=== PATIENT | female | born 1980 | race Hispanic/Latino ===

== ENCOUNTER 2019-08-08 19:25 | Inpatient (IN) | payer OTHER ==
[2019-08-08] MEDS ORDERED: Lidocaine 1% (PF) 30 ML VIAL SC PRN (19:59)
[2019-08-08] MEDS ORDERED: Butorphanol Tartrate 1 MG/ML VIAL SLOW IVP PRN (19:59)
[2019-08-08] MEDS ORDERED: Ondansetron PF 4 MG/2 ML Vial IVP PRN (19:59)
[2019-08-08] MEDS ORDERED: NS w/ Oxytocin 10 units 500 ML IV SCH ×2 (19:59)
[2019-08-08] MEDS ORDERED: Misoprostol 200 MCG TAB PR PRN (19:59)
[2019-08-08] MEDS ORDERED: Diphenoxylate HCl/Atropine Tablet PO PRN (19:59)
[2019-08-08] MEDS ORDERED: NS / Oxytocin 40 units/1000ml 1,000 ML IV PRN (19:59)
[2019-08-08] MEDS ORDERED: Methylergonovine 0.2 MG/ML VIAL IM PRN (19:59)
[2019-08-08] MEDS ORDERED: hydrALAZINE 20 MG/ML VIAL SLOW IVP PRN (19:59)
[2019-08-08] MEDS ORDERED: Carboprost 250 MCG/ML AMP IM PRN (19:59)
[2019-08-08] MEDS ORDERED: Ibuprofen 800 MG TAB PO PRN (19:59)
[2019-08-08] MEDS ORDERED: Promethazine HCl 25 MG/ML VIAL IM PRN (19:59)
[2019-08-08] MEDS ORDERED: HYDROcodone/Acetaminophen 5/325 mg Tablet PO PRN (19:59)
[2019-08-08 20:03] VITALS: BMI 26.4
[2019-08-08] MEDS: Lactated Ringer's 1,000 ML IV SCH (20:45)
[2019-08-08 20:52] LABS: Hemoglobin 13.5 g/dL (12.0-16.0); Mean Corpuscular HGB CONC 35.4 g/dL (32.0-36.0); Mean Corpuscular Hemoglobin 31.8 pg (27.0-31.0); Mean Corpuscular Volume 89.6 fL (78.0-98.0); Mean Platelet Volume 10.6 fL (7.4-10.4); Platelet Count 155 thou/uL (130-400); RBC Distribution Width 12.6 % (11.5-14.5); Red Blood Cell (RBC) Count 4.24 mill/uL (4.20-5.40); White Blood Cell (WBC) Count 10.8 thou/uL (4.8-10.8)
[2019-08-08] MEDS: Misoprostol 100 MCG TAB PO SCH (21:15)
[2019-08-08 21:16] LABS: Glucose 80 mg/dL (70-105)
[2019-08-08 21:29] LABS: Syphilis Antibody Nonreactive (Nonreactive); Syphilis Antibody Index 0.04 S/CO (<1.00 Non-Reactive)
[2019-08-08 23:24] LABS: Hep B Surf Ag Non-Reactive S/CO (NonReactive)
[2019-08-09] MEDS: Misoprostol 100 MCG TAB PO SCH (01:37)
[2019-08-09] MEDS ORDERED: Fentanyl 4 mcg/Bup 0.1% Cadd 100 ML ONE (06:25)
[2019-08-09] MEDS: Lactated Ringer's 1,000 ML IV SCH ×3 (06:49→15:04)
[2019-08-09] MEDS ORDERED: Promethazine HCl 25 MG/ML VIAL IM PRN ×2 (12:30→19:28)
[2019-08-09] MEDS ORDERED: Ondansetron PF 4 MG/2 ML Vial IVP PRN ×2 (12:30→19:28)
[2019-08-09] MEDS ORDERED: diphenhydrAMINE 50 MG/ML VIAL IVP PRN (12:30)
[2019-08-09] MEDS ORDERED: Fentanyl 4 mcg/Bupivacaine 0.1% Cassette 100 ML EPIDURAL SCH (12:30)
[2019-08-09] MEDS ORDERED: Communication Order-Pharmacy FS SCH (12:30)
[2019-08-09] MEDS ORDERED: ePHEDrine/0.9% NaCl/PF SYRINGE 50 mg/10 ml SLOW IVP PRN (12:30)
[2019-08-09] MEDS ORDERED: Lactated Ringer's 500 ML IV PRN (12:30)
[2019-08-09] MEDS ORDERED: Acetaminophen 325 MG TAB PO PRN (12:30)
[2019-08-09] MEDS ORDERED: Naloxone HCl 0.4 mg/ml Vial IVP PRN ×2 (12:30)
[2019-08-09] MEDS ORDERED: NS / Oxytocin 40 units/1000ml 1,000 ML ONE (13:48)
[2019-08-09] MEDS ORDERED: Lidocaine 1% (PF) 30 ML VIAL ONE (13:48)
[2019-08-09] MEDS ORDERED: NS / Oxytocin 40 units/1000ml 1,000 ML IV SCH (19:28)
[2019-08-09] MEDS ORDERED: Bisacodyl 10 MG SUPP PR PRN (19:28)
[2019-08-09] MEDS ORDERED: diphenhydrAMINE 25 MG CAP PO PRN (19:28)
[2019-08-09] MEDS ORDERED: Lanolin Ointment 7 GM TUBE TOP PRN (19:28)
[2019-08-09] MEDS ORDERED: hydrALAZINE 20 MG/ML VIAL SLOW IVP PRN (19:28)
[2019-08-09] MEDS ORDERED: Adacel (T-DAP) 0.5 ML SYRINGE IM ONE (19:28)
[2019-08-09] MEDS ORDERED: HYDROcodone/Acetaminophen 5/325 mg Tablet PO PRN ×2 (19:28)
[2019-08-09] MEDS ORDERED: Milk Of Magnesia 30 ML UDCUP PO PRN (19:28)
[2019-08-09] MEDS ORDERED: Benzocaine-Menthol 82.5 ML CAN TOP PRN (19:28)
[2019-08-09] MEDS: Ibuprofen 800 MG TAB PO SCH (23:03)
[2019-08-09] MEDS: Docusate Calcium (SURFAK) 240 MG CAP PO SCH (23:03)
[2019-08-10] MEDS: Ibuprofen 800 MG TAB PO SCH ×3 (06:24→22:06)
[2019-08-10 06:46] LABS: #Eosinphils 0.1 thou/uL (0.0-0.7); #Lymphocytes 2.1 thou/uL (1.20-3.40); #Monocytes 0.7 thou/uL (0.11-0.59); %Basophils 0.2 % (0.0-1.0); %Eosinophils 0.6 % (0.0-10.0); %Lymphocytes 14.9 % (21.0-51.0); %Monocytes 5.1 % (0.0-10.0); %Neutrophils 79.2 % (42.0-75.0); Hemoglobin 11.2 g/dL (12.0-16.0); Mean Corpuscular HGB CONC 35.2 g/dL (32.0-36.0); Mean Corpuscular Hemoglobin 31.5 pg (27.0-31.0); Mean Corpuscular Volume 89.4 fL (78.0-98.0); Mean Platelet Volume 10.4 fL (7.4-10.4); Platelet Count 122 thou/uL (130-400); RBC Distribution Width 12.8 % (11.5-14.5); Red Blood Cell (RBC) Count 3.55 mill/uL (4.20-5.40); White Blood Cell (WBC) Count 13.9 thou/uL (4.8-10.8)
[2019-08-10] MEDS: Ferrous Sulfate 325 MG TAB PO SCH ×2 (09:58→16:42)
[2019-08-10] MEDS ORDERED: FLU VACC QS2019-20(6MOS UP)/PF 60 MCG/0.5 ML SYRINGE IM ONE (10:15)
[2019-08-10] MEDS: Prenatal Vitamin 1 TAB PO SCH (10:51)
[2019-08-10] MEDS: Docusate Calcium (SURFAK) 240 MG CAP PO SCH ×2 (10:52→22:06)
[2019-08-10] MEDS: Misoprostol 100 MCG TAB PO SCH ×2 (11:11→11:12)
[2019-08-11] MEDS: Ibuprofen 800 MG TAB PO SCH (04:55)
[2019-08-11 07:51] VITALS: BP 139/77; TEMP 97.4
[2019-08-11] MEDS: Docusate Calcium (SURFAK) 240 MG CAP PO SCH (08:27)
[2019-08-11] MEDS: Ferrous Sulfate 325 MG TAB PO SCH (08:28)
[2019-08-11] MEDS: Prenatal Vitamin 1 TAB PO SCH (08:28)
== END 2019-08-11 09:38 | disposition home or self-care (01) | DRG 807 ==
LOC: L&D 19:25 → 3SW 08-09 21:47
PROVIDERS: ADMIT Family Medicine; ATTEND Family Medicine
PROC: 10E0XZZ Delivery of Products of Conception, External Approach (ICD-10-PCS; principal; 2019-08-09)
PROC: 3E033VJ Introduction of Other Hormone into Peripheral Vein, Percutaneous Approach (ICD-10-PCS; 2019-08-09)
PROC: 10907ZC Drainage of Amniotic Fluid, Therapeutic from Products of Conception, Via Natural or Artificial Opening (ICD-10-PCS; 2019-08-09)
PROC: 0W8NXZZ Division of Female Perineum, External Approach (ICD-10-PCS; 2019-08-09)
DX: O24.429 Gestational diabetes mellitus in childbirth, unspecified control (principal); Z37.0 Single live birth; Z3A.39 39 weeks gestation of pregnancy
CPT/HCPCS: 36415; 36416; 51702; 82947; 85025; 85027; 86780; 86850; 86900; 86901; 87340; 90715; J2001; J2590

== ENCOUNTER 2020-09-03 20:16 | Emergency (ER) | payer OTHER ==
[2020-09-03] MEDS ORDERED: HYDROcodone/Acetaminophen 10/325 mg Tablet ONE (20:44)
[2020-09-03 20:51] LABS: #Eosinphils 0.1 thou/uL (0.0-0.7); #Lymphocytes 2.9 thou/uL (1.20-3.40); #Monocytes 0.6 thou/uL (0.11-0.59); #Neutrophils 6.6 thou/uL (1.40-6.50); %Basophils 0.2 % (0.0-1.0); %Eosinophils 0.8 % (0.0-10.0); %Lymphocytes 28.5 % (21.0-51.0); %Neutrophils 64.5 % (42.0-75.0); Mean Corpuscular HGB CONC 34.9 g/dL (32.0-36.0); Mean Corpuscular Hemoglobin 30.5 pg (27.0-31.0); Mean Corpuscular Volume 87.3 fL (78.0-98.0); Mean Platelet Volume 8.9 fL (7.4-10.4); Platelet Count 229 thou/uL (130-400); Red Blood Cell (RBC) Count 4.59 mill/uL (4.20-5.40); White Blood Cell (WBC) Count 10.3 thou/uL (4.8-10.8)
[2020-09-03 21:52] LABS: ALT (SGPT) 16 U/L (8-55); AST (SGOT) 16 U/L (5-34); Albumin 4.5 g/dL (3.5-5.0); Alkaline Phosphatase 56 U/L (40-110); Anion Gap 14 mmol/L (10-20); BUN (Urea Nitrogen) 12 mg/dL (7.0-18.7); Bilirubin, Total 0.2 mg/dL (0.2-1.2); Calc. Creatinine Clearance 0 mL/min (70-130); Calcium 9.2 mg/dL (7.8-10.44); Carbon Dioxide 22 mmol/L (22-29); Chloride 103 mmol/L (98-107); Estimated GFR-MDRD 81; Globulin 3.1 g/dL (2.4-3.5); Glucose 100 mg/dL (70-105); Potassium 3.8 mmol/L (3.5-5.1); Protein, Total 7.6 g/dL (6.0-8.3); Sodium 135 mmol/L (136-145)
--- NOTE | 2020-09-03 21:54 | ULT ---
PELVIC ULTRASOUND: History: First trimester bleeding. FINDINGS: Real-time imaging of the pelvis was obtained transabdominally. This shows an intrauterine gestational sac and pole. The crown to rump length measurements are 2.6 cm corresponding to 9 weeks 2 days . Yolk sac and heart activity was seen. heart rate was 168 beats/minute. There is suggest ion of a tiny subchorionic bleed. The right and left adnexa are normal in appearance. DOPPLER EVALUATION WITH SPECTRAL ANALYSIS: Normal flow is shown to the ovaries. IMPRESSION: Intrauterine with crown to rump length measurements corresponding to 9 weeks 2 days, with e stimated date of delivery 04-06-2021. Very small subchorionic bleed identified. POS: OFF
[2020-09-03 22:22] LABS: Bilirubin Negative (Negative); Blood, Urine 3+ (Negative); Clarity Clear (Clear); Glucose, Urine (Dipstick) Normal (Negative); Ketone, Urine Negative (Negative); Leukocyte Negative Leu/uL (Negative); Nitrite Negative (Negative); Protein, Urine (Dipstick) Negative (Neg-Trace); Specific Gravity, Urine 1.005 (1.002-1.036); Urobilinogen Normal mg/dL (Less than 2); pH, Urine 6.5 (5.0-9.0)
[2020-09-03 22:23] LABS: Bacteria/HPF None Seen HPF (None Seen); RBC/HPF 0-3 HPF (0-3); Squamous Epithelial None Seen HPF (0-3); WBC/HPF 0-3 HPF (0-3)
== END 2020-09-03 22:38 | disposition home or self-care (01) ==
LOC: ERS 20:16
DX: O20.8 Other hemorrhage in early pregnancy (principal); Z3A.09 9 weeks gestation of pregnancy
CPT/HCPCS: 36415; 76856; 80053; 81003; 81015; 84702; 85025; 86850; 86900; 86901

== ENCOUNTER 2020-11-24 12:25 | Outpatient (CLI) | payer OTHER ==
--- NOTE | 2020-11-24 13:56 | ULT ---
Obstetrical ultrasound: 11/24/2020 HISTORY: 40-year-old female undergoing assessment for anatomy TECHNIQUE: Multiplanar grayscale sonographic imaging of the gravid uterus obtained. FINDINGS: Cervical length is approximately 5.5 cm. The placenta is located in a posterior fundal posi tion with no evidence for previa or abruption. Single intrauterine gestation is present with a breech presentation. The spine, stomach, umbilical cord insertion site, urinary bladder, umbilical cord, nose/lips, intracranial contents, four-chamber heart view, kidneys, and umbilical cord insertion site appear within normal limits. Amniotic fluid index is 12.6 cm. heart rate is 136 bpm. biometry: Biparietal diameter 4.9 cm 20 weeks 6 days Head circumference 18.5 cm 21 weeks 0 days Abdominal circumference 17.9 cm 22 weeks 6 days Femur length 3.5 cm 21 weeks 1 day Average age based on ultrasound is 21 weeks 4 days with estimated date of delivery on 04/02/2021. Estimated weight 457 g +/- 67 g. IMPRESSION: Intrauterine gestation as detailed above.
== END 2020-11-24 12:26 | disposition home or self-care (01) ==
LOC: BICULT 12:25
PROVIDERS: ATTEND Family Medicine
DX: O09.513 Supervision of elderly primigravida, third trimester (principal); Z3A.21 21 weeks gestation of pregnancy
CPT/HCPCS: 76805

== ENCOUNTER 2024-11-19 09:44 | Inpatient (IN) | payer BC, OTHER, SELFPAY ==
[2024-11-19 10:15] LABS: #Basophils 0.03 10x3/uL (0.0-0.2); %Basophils 0.3 % (0.0-1.0); %Eosinophils 0.4 % (0.0-10.0); %Lymphocytes 10.6 % (21.0-51.0); %Neutrophils 83.3 % (42.0-75.0); Hemoglobin 13.4 g/dL (12.0-16.0); Mean Corpuscular HGB CONC 32.7 g/dL (32.0-36.0); Mean Corpuscular Hemoglobin 27.1 pg (27.0-31.0); Mean Corpuscular Volume 82.8 fL (78.0-98.0); Mean Platelet Volume 11.4 fL (7.4-10.4); Platelet Count 212 10x3/uL (130-400); RBC Distribution Width 14.3 % (11.5-14.5); Red Blood Cell (RBC) Count 4.95 mill/uL (4.20-5.40)
[2024-11-19 10:29] LABS: ALT (SGPT) 65 U/L (8-55); AST (SGOT) 133 U/L (5-34); Albumin 4.1 g/dL (3.5-5.0); Alkaline Phosphatase 173 U/L (40-110); Anion Gap 12 mmol/L (10-20); BUN (Urea Nitrogen) 12 mg/dL (7.0-18.7); Bilirubin, Total 1.1 mg/dL (0.2-1.2); Calc. Creatinine Clearance 0 mL/min (70-130); Calcium 9.2 mg/dL (7.8-10.44); Carbon Dioxide 26 mmol/L (22-29); Chloride 102 mmol/L (98-107); Estimated GFR 94; Globulin 3.7 g/dL (2.4-3.5); Glucose 115 mg/dL (70-105); Potassium 3.9 mmol/L (3.5-5.1); Protein, Total 7.8 g/dL (6.0-8.3); Sodium 136 mmol/L (136-145)
[2024-11-19] MEDS ORDERED: Mag-Al 1200 mg/1200 mg/30 ML UDCUP ONE (10:37)
[2024-11-19] MEDS ORDERED: Lidocaine Viscous Sol 2% 15 ml UD Cup ONE (10:37)
[2024-11-19 10:52] LABS: Pregnancy Test - Urine (BHCG) Negative (Negative); Pregu Control Background? CLEAR/WHITE (CLR/WHITE); Pregu Control Bar Appear? YES (CONTROL BAR); Specific Gravity 1.019 (1.002-1.036)
[2024-11-19 10:54] LABS: Bilirubin Negative (Negative); Blood, Urine Negative (Negative); CAUTI Indications for Culture Pelvic or flank pain; Clarity Clear (Clear); Glucose, Urine (Dipstick) Normal (Negative); Ketone, Urine Negative (Negative); Leukocyte Negative Leu/uL (Negative); Nitrite Negative (Negative); Protein, Urine (Dipstick) Negative (Neg-Trace); RBC/HPF 0-3 HPF (0-3); Specific Gravity, Urine 1.019 (1.002-1.036); Squamous Epithelial 0-3 HPF (0-3); Urobilinogen Normal mg/dL (Less than 2); WBC/HPF 0-3 HPF (0-3)
[2024-11-19 10:55] LABS: Bacteria/HPF 1+ HPF (None Seen); Urine Culture Reflex No No
[2024-11-19] MEDS ORDERED: Dicyclomine 20 MG TAB ONE (12:10)
[2024-11-19] MEDS ORDERED: Dextrose 5% in Water 1,000 ML IV PRN (15:35)
[2024-11-19] MEDS ORDERED: Mag-Al 1200 mg/1200 mg/30 ML UDCUP PO PRN (15:35)
[2024-11-19] MEDS ORDERED: Calcium Carbonate 500 MG ChewTAB PO PRN (15:35)
[2024-11-19] MEDS ORDERED: Ipratropium/Albuterol 3 ML NEB NEB PRN (15:35)
[2024-11-19] MEDS ORDERED: Glucagon 1 MG/ML KIT IM PRN (15:35)
[2024-11-19] MEDS ORDERED: Ondansetron PF 4 MG/2 ML Vial IVP PRN (15:35)
[2024-11-19] MEDS ORDERED: Acetaminophen 325 MG TAB PO PRN (15:35)
[2024-11-19] MEDS ORDERED: Dextrose 50% Abboject 50 ML SYRINGE SLOW IVP PRN (15:35)
[2024-11-19] MEDS ORDERED: hydrALAZINE 20 MG/ML VIAL SLOW IVP PRN (15:35)
[2024-11-19] MEDS ORDERED: Indocyanine Green 25 MG/10 ML VIAL IVP SCH (16:00)
[2024-11-19] MEDS ORDERED: Piperacillin/Tazobactam 3.375 GM VIAL ONE (16:12)
[2024-11-19] MEDS ORDERED: Sodium Chloride 0.9% 100 ML ONE (16:13)
[2024-11-19] MEDS: Piperacillin/Tazobactam 3.375 GM in Sodium Chloride 0.9% 100 ML IVPB SCH ×2 (17:00→20:42)
[2024-11-19 17:01] VITALS: BMI 212846.0
[2024-11-19] MEDS: Ketorolac Tromethamine 30 MG (1 mL) VIAL IVP SCH (18:31)
[2024-11-19] MEDS: Famotidine/PF 20 mg/2ml Vial SLOW IVP SCH (20:42)
[2024-11-19] MEDS: Famotidine 20 MG TAB PO SCH (22:16)
[2024-11-20 05:48] LABS: #Basophils 0.04 10x3/uL (0.0-0.2); %Basophils 0.6 % (0.0-1.0); %Eosinophils 1.1 % (0.0-10.0); %Lymphocytes 17.9 % (21.0-51.0); %Monocytes 8.3 % (0.0-10.0); %Neutrophils 71.8 % (42.0-75.0); Hematocrit 37.5 % (36.0-47.0); Hemoglobin 12.2 g/dL (12.0-16.0); Mean Corpuscular HGB CONC 32.5 g/dL (32.0-36.0); Mean Corpuscular Hemoglobin 27.2 pg (27.0-31.0); Mean Corpuscular Volume 83.5 fL (78.0-98.0); Mean Platelet Volume 11.8 fL (7.4-10.4); Platelet Count 189 10x3/uL (130-400); RBC Distribution Width 14.6 % (11.5-14.5); Red Blood Cell (RBC) Count 4.49 mill/uL (4.20-5.40)
[2024-11-20 07:16] LABS: ALT (SGPT) 579 U/L (8-55); AST (SGOT) 508 U/L (5-34); Albumin 3.6 g/dL (3.5-5.0); Alkaline Phosphatase 217 U/L (40-110); Anion Gap 12 mmol/L (10-20); BUN (Urea Nitrogen) 10 mg/dL (7.0-18.7); Bilirubin, Total 2.7 mg/dL (0.2-1.2); Calc. Creatinine Clearance 93 mL/min (70-130); Calcium 8.7 mg/dL (7.8-10.44); Carbon Dioxide 21 mmol/L (22-29); Chloride 105 mmol/L (98-107); Estimated GFR 97; Globulin 3.4 g/dL (2.4-3.5); Glucose 93 mg/dL (70-105); Potassium 4.2 mmol/L (3.5-5.1); Sodium 134 mmol/L (136-145)
[2024-11-20] MEDS ORDERED: EPINEPHrine 1 MG/ML VIAL ONE (07:30)
[2024-11-20] MEDS ORDERED: Bupivacaine 0.25% HCL 30 ML VIAL ONE (07:30)
[2024-11-20] MEDS ORDERED: Electrolyte Replacement Protocol 1 EACH FS PRN (07:44)
[2024-11-20] MEDS ORDERED: Electrolyte Replacement Protocol FS PRN (08:15)
[2024-11-20] MEDS ORDERED: Indocyanine Green 25 MG/10 ML VIAL ONE (08:49)
[2024-11-20] MEDS ORDERED: PROPOFOL 20 ML ONE (09:36)
[2024-11-20] MEDS ORDERED: Lidocaine 2% PF 5 ML VIAL ONE (09:36)
[2024-11-20] MEDS ORDERED: fentaNYL PF 100 MCG/2 ML SYRINGE ONE (09:36)
[2024-11-20] MEDS ORDERED: Rocuronium Bromide 10 MG/ML (10ML VIAL) ONE (09:37)
[2024-11-20] MEDS ORDERED: Ketorolac Tromethamine 30 MG (1 mL) VIAL ONE (09:48)
[2024-11-20] MEDS ORDERED: Ondansetron PF 4 MG/2 ML Vial ONE (09:48)
[2024-11-20] MEDS ORDERED: Dexamethasone 20 MG/5 ML VIAL ONE (09:48)
[2024-11-20] MEDS ORDERED: PACU-Morphine 4MG/ML VIAL SLOW IVP PRN (10:14)
[2024-11-20] MEDS ORDERED: Promethazine HCl 25 MG/ML VIAL IM PRN (10:14)
[2024-11-20] MEDS ORDERED: HYDROmorphone 2 MG/ML VIAL SLOW IVP PRN (10:14)
[2024-11-20] MEDS ORDERED: Ondansetron HCl/PF 4 MG/2 ML Vial IVP PRN (10:14)
[2024-11-20] MEDS ORDERED: SUGAMMADEX SODIUM 200 MG/2 ML VIAL ONE (10:18)
[2024-11-20] MEDS ORDERED: fentaNYL 50 mcg/mL 1 mL Vial ONE (10:50)
[2024-11-20] MEDS: Lactated Ringer's 1,000 ML IV SCH (11:15)
[2024-11-20] MEDS: HYDROcodone/Acetaminophen 5/325 mg Tablet PO PRN (11:50)
[2024-11-20] MEDS: traMADol HCl 50 MG TAB PO PRN (16:33)
[2024-11-21 04:28] LABS: #Basophils Less than 0.03 10x3/uL (0.0-0.2); #Eosinophils Less than 0.03 10x3/uL (0.0-0.7); %Basophils 0.2 % (0.0-1.0); %Eosinophils 0.2 % (0.0-10.0); %Lymphocytes 13.8 % (21.0-51.0); %Monocytes 6.7 % (0.0-10.0); %Neutrophils 78.8 % (42.0-75.0); Hemoglobin 12.3 g/dL (12.0-16.0); Mean Corpuscular HGB CONC 33.2 g/dL (32.0-36.0); Mean Corpuscular Hemoglobin 27.2 pg (27.0-31.0); Mean Corpuscular Volume 81.9 fL (78.0-98.0); Mean Platelet Volume 11.5 fL (7.4-10.4); Platelet Count 184 10x3/uL (130-400); RBC Distribution Width 14.4 % (11.5-14.5); Red Blood Cell (RBC) Count 4.52 mill/uL (4.20-5.40)
[2024-11-21 05:15] LABS: ALT (SGPT) 560 U/L (8-55); AST (SGOT) 366 U/L (5-34); Albumin 3.2 g/dL (3.5-5.0); Alkaline Phosphatase 214 U/L (40-110); Anion Gap 12 mmol/L (10-20); BUN (Urea Nitrogen) 6 mg/dL (7.0-18.7); Bilirubin, Total 3.4 mg/dL (0.2-1.2); Calc. Creatinine Clearance 89 mL/min (70-130); Calcium 8.7 mg/dL (7.8-10.44); Carbon Dioxide 22 mmol/L (22-29); Chloride 107 mmol/L (98-107); Estimated GFR 91; Globulin 3.4 g/dL (2.4-3.5); Glucose 110 mg/dL (70-105); Potassium 4.3 mmol/L (3.5-5.1); Protein, Total 6.6 g/dL (6.0-8.3); Sodium 137 mmol/L (136-145)
[2024-11-21] MEDS ORDERED: fentaNYL 50 mcg/mL 1 mL Vial ONE (09:30)
[2024-11-21] MEDS ORDERED: PROPOFOL 20 ML ONE (09:30)
[2024-11-21] MEDS ORDERED: Rocuronium Bromide 10 MG/ML (10ML VIAL) ONE (09:32)
[2024-11-21] MEDS ORDERED: Lidocaine 2% PF 5 ML VIAL ONE (09:32)
[2024-11-21] MEDS ORDERED: Famotidine/PF 20 mg/2ml Vial ONE (09:39)
[2024-11-21] MEDS ORDERED: Indomethacin 50 MG SUPP ONE (09:51)
[2024-11-21] MEDS ORDERED: Ondansetron PF 4 MG/2 ML Vial ONE (09:59)
[2024-11-21] MEDS ORDERED: SUGAMMADEX SODIUM 200 MG/2 ML VIAL ONE (09:59)
[2024-11-21] MEDS ORDERED: Dexamethasone 4 mg/ml Vial ONE (09:59)
[2024-11-21] MEDS ORDERED: Iopamidol 15 ML ONE (10:33)
[2024-11-21] MEDS ORDERED: Ondansetron HCl/PF 4 MG/2 ML Vial IVP PRN (10:34)
[2024-11-21] MEDS ORDERED: Promethazine HCl 25 MG/ML VIAL IM PRN (10:34)
[2024-11-22 05:49] LABS: #Basophils 0.04 10x3/uL (0.0-0.2); %Basophils 0.5 % (0.0-1.0); %Eosinophils 0.5 % (0.0-10.0); %Lymphocytes 30.5 % (21.0-51.0); %Monocytes 7.3 % (0.0-10.0); %Neutrophils 60.8 % (42.0-75.0); Hemoglobin 11.3 g/dL (12.0-16.0); Mean Corpuscular HGB CONC 32.3 g/dL (32.0-36.0); Mean Corpuscular Hemoglobin 27.4 pg (27.0-31.0); Mean Corpuscular Volume 84.7 fL (78.0-98.0); Mean Platelet Volume 11.9 fL (7.4-10.4); Platelet Count 167 10x3/uL (130-400); RBC Distribution Width 14.8 % (11.5-14.5); Red Blood Cell (RBC) Count 4.13 mill/uL (4.20-5.40)
[2024-11-22 06:06] LABS: ALT (SGPT) 449 U/L (8-55); AST (SGOT) 186 U/L (5-34); Albumin 3.2 g/dL (3.5-5.0); Alkaline Phosphatase 210 U/L (40-110); Anion Gap 11 mmol/L (10-20); BUN (Urea Nitrogen) 7 mg/dL (7.0-18.7); Bilirubin, Total 2.6 mg/dL (0.2-1.2); Calc. Creatinine Clearance 82 mL/min (70-130); Calcium 8.6 mg/dL (7.8-10.44); Carbon Dioxide 26 mmol/L (22-29); Chloride 105 mmol/L (98-107); Estimated GFR 82; Globulin 3.4 g/dL (2.4-3.5); Glucose 103 mg/dL (70-105); Potassium 3.7 mmol/L (3.5-5.1); Protein, Total 6.6 g/dL (6.0-8.3); Sodium 138 mmol/L (136-145)
[2024-11-22 07:55] VITALS: BP 123/78; TEMP 97.2
== END 2024-11-22 10:40 | disposition home or self-care (01) | DRG 419 ==
LOC: ERS 09:44 → SURG A 16:33 → OBSVTOIN 11-20 14:42
PROVIDERS: ADMIT Surgery; ATTEND Surgery
PROC: 0FT44ZZ Resection of Gallbladder, Percutaneous Endoscopic Approach (ICD-10-PCS; principal; 2024-11-20)
PROC: 8E0W4CZ Robotic Assisted Procedure of Trunk Region, Percutaneous Endoscopic Approach (ICD-10-PCS; 2024-11-20)
PROC: 0FC98ZZ Extirpation of Matter from Common Bile Duct, Via Natural or Artificial Opening Endoscopic (ICD-10-PCS; 2024-11-21)
DX: K80.42 Calculus of bile duct with acute cholecystitis without obstruction (principal); R79.89 Other specified abnormal findings of blood chemistry; Z79.891 Long term (current) use of opiate analgesic; Z79.899 Other long term (current) drug therapy
CPT/HCPCS: 36415; 74330; 76705; 80053; 81001; 81025; 83690; 85025; 88304; C1889; J0171; J0665; J1100; J1885; J2405; J2543; J2704; J3010; J3490; J7120; Q9967; S2900